=== PATIENT | male | born 2000 | race Caucasian/White ===

== ENCOUNTER 2022-09-11 08:00 | Outpatient (RCR) | payer OTHER ==
[~2022-09-11 08:00] MED LIST: AMOXICILLIN 8751 TAB PO; TRILEPTAL600 MG PO
== END 2022-09-16 | disposition home or self-care (01) ==
LOC: WSOT
DX: S61.011D Laceration without foreign body of right thumb without damage to nail, subsequent encounter (principal); X58.XXXD Exposure to other specified factors, subsequent encounter

== ENCOUNTER 2023-09-18 14:21 | Emergency (ER) | payer SELFPAY ==
[~2023-09-18] VITALS: Ht 190.5 cm; Wt 68.2 kg
[2023-09-18 18:00] VITALS: BP 129/71; PULSE 78; TEMP 98.3
== END 2023-09-18 18:00 | disposition home or self-care (01) ==
LOC: COL.ER 14:21
DX: S61.213A Laceration without foreign body of left middle finger without damage to nail, initial encounter (principal); S61.215A Laceration without foreign body of left ring finger without damage to nail, initial encounter; W26.8XXA Contact with other sharp object(s), not elsewhere classified, initial encounter; Y92.59 Other trade areas as the place of occurrence of the external cause; Y99.0 Civilian activity done for income or pay